=== PATIENT | female | born 1975 | race Caucasian/White ===

== ENCOUNTER 2018-07-10 20:14 | Emergency (ER) | payer OTHER ==
[~2018-07-10] VITALS: Ht 162.6 cm; Wt 60.8 kg
== END 2018-07-11 00:32 | disposition home or self-care (01) ==
LOC: ER 20:14
DX: L03.116 Cellulitis of left lower limb (principal); S80.12XS Contusion of left lower leg, sequela; X58.XXXS Exposure to other specified factors, sequela